=== PATIENT | male | born 1990 | race Caucasian/White ===

== ENCOUNTER 2016-09-16 21:36 | Emergency (ER) | payer OTHER ==
[~2016-09-16] VITALS: Ht 172.7 cm; Wt 86.2 kg
--- NOTE | 2016-09-16 22:03 | NUR ---
26 YO MALE BB SELF. PT IS ALERT X 3, C/O MIDSTERNAL CP ON & OFF X YESTERDAY, TRIED TAKING IBUPROFEN 400MG YESTERDAY W/ NO RELIEF. PT AMBULATED TO ER BED, SKIN WARMA ND DRY, RR EVEN AND UNLABORED. AWAITING ORDERS FROM RPOVIDER
--- NOTE | 2016-09-16 22:04 | NUR ---
EMT AT BED SIDE FOR EKG
[2016-09-16] MEDS ORDERED: ASPIRIN 81 MG TAB.CHEW ONE (22:15)
[2016-09-16] MEDS ORDERED: NITROGLYCERIN PACKET 1 GM PACKET ONE (22:16)
--- NOTE | 2016-09-16 22:21 | NUR ---
MEDICATED PT ORDERED
[2016-09-16] MEDS ORDERED: NITROGLYCERIN PACKET 1 GM PACKET TD ONE (22:30)
[2016-09-16] MEDS ORDERED: ACETAMINOPHEN ES 500 MG TABLET PO ONE (22:30)
[2016-09-16] MEDS ORDERED: ASPIRIN 81 MG TAB.CHEW PO ONE (22:30)
[2016-09-16 22:46] LABS: BASOPHILS % (AUTO) 0.2 % (0.0-2.0); EOSINOPHILS # (AUTO) 0.2 /CMM (0.0-0.7); EOSINOPHILS % (AUTO) 2.1 % (0.0-6.0); HEMATOCRIT 44 % (39-51); LYMPHOCYTES # (AUTO) 2.9 /CMM (0.8-4.8); LYMPHOCYTES % (AUTO) 24.1 % (20.0-44.0); MEAN CORPUSCULAR HEMOGLOBIN 31 PG (26.0-33.0); MEAN CORPUSCULAR HGB CONC 34 g/dl (31.0-36.0); MEAN CORPUSCULAR VOLUME 90 fL (80-96); MONOCYTES # (AUTO) 0.5 /CMM (0.1-1.30); MONOCYTES % (AUTO) 4.2 % (2.0-12.0); NEUTROPHILS # (AUTO) 8.4 /CMM (1.8-8.9); NEUTROPHILS % (AUTO) 69.4 % (43.0-81.0); PLATELET COUNT (AUTO) 297 /CMM (150-450); RDW COEFFICIENT OF VARIATION 12.3 (11.5-15.0); RED BLOOD CELL COUNT(AUTO) 4.89 MIL/uL (4.5-6.0); WHITE BLOOD COUNT (AUTO) 12.1 K/uL (4.3-11.0)
[2016-09-16 22:54] LABS: CALCIUM, SERUM 9.1 mg/dL (8.5-10.1); CARBON DIOXIDE 26 mmol/L (21-32); CHLORIDE 106 mmol/L (98-107); CREATININE 1.1 mg/dL (0.6-1.3); GFR 82 mL/min (>60); GLUCOSE 98 mg/dL (74-106); POTASSIUM 3.7 mmol/L (3.5-5.1); SODIUM SERUM 141 mmol/L (136-145); UREA NITROGEN, BLOOD 12 mg/dL (7-18)
[2016-09-16 23:01] LABS: TROPONIN I < 0.017 ng/mL (0.00-0.056)
[2016-09-16 23:06] LABS: ALANINE AMINOTRANSFERASE 47 U/L (12-78); ALBUMIN 4.4 g/dL (3.4-5.0); ALKALINE PHOSPHATASE 80 U/L (46-116); ASPARTATE AMINOTRANSFERASE 21 U/L (15-37); B-TYPE NATRIURETIC PEPTIDE 25 PG/ML (0-125); BILIRUBIN,DIRECT 0.1 mg/dL (0.0-0.2); BILIRUBIN,TOTAL 0.4 mg/dL (0.2-1.0); TOTAL PROTEIN, SERUM 7.6 g/dL (6.4-8.2)
[2016-09-16] MEDS ORDERED: ACETAMINOPHEN ES 500 MG TABLET ONE (23:57)
--- NOTE | 2016-09-17 00:13 | NUR ---
MEDICATED PT ORDERED
--- NOTE | 2016-09-17 00:13 | NUR ---
PT RESTING IN ER BED, NAD NOTED, SKIN WARM AND DRY. WILL CONITNUE TO MONITOR
[2016-09-17 02:31] VITALS: BP 122/79
--- NOTE | 2016-09-17 02:33 | NUR ---
Patient discharged to home in stable condition. Written and verbal after care instructions given. Patient verbalizes understanding of instruction. PT ambulatory with a steady gait VITAL SIGNS WITHIN NORMAL LIMITS.
== END 2016-09-17 02:41 | disposition home or self-care (01) ==
LOC: ER 21:36
DX: R07.9 Chest pain, unspecified (principal); F41.1 Generalized anxiety disorder; Z79.82 Long term (current) use of aspirin; Z98.890 Other specified postprocedural states
CPT/HCPCS: 36415 ×2; 71010; 80048; 80076; 83880; 84484 ×2; 85025; 93005; 99285; A4606; Z7610

== ENCOUNTER 2017-03-06 07:55 | Outpatient (CLI) | payer OTHER | END 2017-03-06 23:59 | disposition home or self-care (01) | LOC: WOU 07:55 | PROVIDERS: ATTEND Podiatrist Foot & Ankle Surgery | DX: B07.0 Plantar wart (principal); B35.3 Tinea pedis; R60.0 Localized edema; M79.672 Pain in left foot; M79.671 Pain in right foot | CPT/HCPCS: G0463 ==